=== PATIENT | female | born 1955 | race Caucasian/White ===

== ENCOUNTER 2017-02-18 17:07 | Emergency (ER) | payer MEDICAID ==
[2017-02-18 17:40] VITALS: TEMP 98.2
[2017-02-18] MEDS ORDERED: IBUPROFEN 200 MG TAB PO ONE (17:47)
--- NOTE | 2017-02-18 17:55 | EDPHY ---
H & P Stated Complaint: fell through fence, L rib, shoulder, arm, face pain HPI/ROS: CHIEF COMPLAINT: Fell into a fence HISTORY OF PRESENT ILLNESS: This patient is a 61 year old female complaining of head, arm, rib, and collarbone pain secondary to a fall this afternoon. She was running and tripped over a cinderblock, falling into a wooden fence with enough force to break it. She struck the fence primarily with her face and arm. She felt woozy following the incident, but denies loss of consciousness. She has a severe headache, pain to her left collarbone and arm, and pain in her right ribs. She has a history of previous head injury 03/14/2000, which she states resulted in a long recovery process for aphasia and other symptoms. No nausea, vomiting. She denies other injuries and specifically states that she does not have neck or back pain, numbness, or weakness. REVIEW OF SYSTEMS: A ten point review of systems was performed and is negative with the exception of the items mentioned in the HPI. - Personal History Current Tetanus/Diphtheria Vaccine: Yes Current Tetanus Diphtheria and Acellular Pertussis (TDAP): Yes - Medical/Surgical History PMH: 1. Previous head injury 03/14/2000. 2. Right ribs previous fractures. 3. Cesarian section 4. Appendectomy 5. 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 . - Physical Exam Exam: General Appearance: Alert. Vital signs reviewed. Blood pressure 133/80 Head: Normocephalic atraumatic. Eyes: Pupils equal and round, no conjunctival injection, no discharge. Anicteric. ENT, Mouth: No hemotympanum. Very tender over left zygoma, angle of mandible. Mild Trismus. Mucous membranes are moist, no oropharyngeal erythema or edema. No dental injury. No malocclusion. Neck: No tenderness with palpation over the cervical spine in the midline. There is some tenderness over the trapezius muscles bilaterally. No lymphadenopathy, supple. Respiratory: Lungs are clear to auscultation; no wheezes, rales, or rhonchi. Thorax is without crepitus. No rib tenderness. Cardiovascular: Regular rate and rhythm; no murmur, rub, or gallop. Gastrointestinal: Abdomen is soft and nontender, no masses or organomegaly, bowel sounds normal. Skin: Warm and dry, no rashes on exposed skin, normal color. Back: Nontender to palpation over the thoracolumbar spine. No CVAT. Extremities: Abrasion posterior medial aspect left wrist. Full active range of motion left shoulder and elbow. Wrist not tested due to pain No lower extremity edema, no calf tenderness or swelling. Neurological: Alert and oriented. Moving all four extremities easily and equally. Cranial nerves II through XII are examined and are intact (visual acuity not tested). Strength is 5 over 5 bilaterally with testing of all major motor groups. Sensation is intact to light touch over all 4 extremities. Deep tendon reflexes are 2+ in the biceps and knees bilaterally. Gait is normal. Psychiatric: Normal affect. Constitutional: Initial Vital Signs Temperature (C) 36.8 C 02/18/17 17:13 Heart Rate 73 02/18/17 17:13 Respiratory Rate 17 02/18/17 17:13 Blood Pressure 133/80 H 02/18/17 17:13 O2 Sat (%) 96 02/18/17 17:13 O2 Delivery Mode Room Air Allergies/Adverse Reactions: Penicillins Allergy (Verified 02/18/17 17:13) SHELL FISH Allergy (Uncoded 08/08/10 10:06) Home Medications: Medication Instructions Recorded [facility] 08/08/10 Hydrocodone/APAP 5/325 [Mclean 1 tab PO Q4 #12 tab 07/17/14 5/325 (RX)] Hydrocodone/APAP 5/325 [Mclean 1 - 2 tab PO Q4 PRN #10 tab 02/18/17 5/325 (RX)] Medical Decision Making - Diagnostics Imaging: Discussed imaging studies w/ call center manager Radiologist, I viewed and interpreted images myself ED Course/Re-evaluation: Due to patient's severe headache and history of prior closed head injury, plan for CT head, neck, facial bones (she reports difficulty opening her mouth and pain over left maxilla and she has swelling and bruising over left zygoma), X- ray chest, wrist. 19:[address] Ackerman, radiologist. CT head, neck, maxillofacial negative for acute processes. X-ray chest and wrist show no acute osseous abnormalities. I reviewed the images myself as well. Plan to discharge home in good condition with prescription for small quantity of Mclean for pain management. Follow up and return precautions discussed. The patient is comfortable with this plan. I have not found evidence of life- threatening injury. Differential Diagnosis: I considered a differential diagnosis of traumatic injury that includes but is not limited to intracranial hemorrhage, skull fracture, concussion, vertebral injury, spinal cord injury, intrathoracic injury, intra-abdominal injury, long bone fractures, contusions, abrasions, and lacerations. - Data Points Medications Given: Discontinued Medications Ibuprofen (Motrin) 600 mg PO EDNOW ONE Stop: 02/18/17 17:48 Last Admin: 02/18/17 17:51 Dose: 600 mg Oxycodone/Acetaminophen (Percocet 5/325) 2 tab PO EDNOW ONE Stop: 02/18/17 18:57 Last Admin: 02/18/17 18:56 Dose: 2 tab Departure - Departure Disposition: Home, Routine, Self-Care Clinical Impression: Multiple contusions, Cervical strain Condition: Good Instructions: Cervical Strain (ED), Contusion in Adults (ED), RICE Therapy (ED) Additional Instructions: 1. Follow up with your primary care provider for symptoms unresolved. 2. You may take Mclean as prescribed as needed for severe pain. You may also take ibuprofen or Tylenol as directed below. Do not take Tylenol while you are taking Mclean, as this medication already contains acetaminophen. 3. Return to the Emergency Department for severe head pain, weakness or numbness , fainting, vomiting, or other worsening of condition. Adult Pain & Fever Control: We recommend Acetaminophen (Tylenol) and Ibuprofen (Motrin,Advil) for pain and fever control. When fever is high or pain severe, both drugs can be used at the same time, but at different intervals. Please note the time differences. Your dose is: Acetaminophen 650mg every 4 to 6 hours Ibuprofen 400mg every 6-8 hours with food Note: do not take Acetaminophen with Hydrocodone (Vicodin, Lortab) or Oxycodone (Percocet). These medications also contain Acetaminophen. No more than 3000mg of Acetaminophen should be taken in 24 hours (for an adult). Referrals: Ashlie Osborne PA [Primary Care Provider] - As per Instructions Prescriptions: Hydrocodone/APAP 5/325 [Mclean 5/325 (RX)] 1 - 2 tab PO Q4 PRN #10 tab PRN Reason: pain Report Scribed for: Lissette Quintanilla Report Scribed by: Jackie Jane Date of Report: 02/18/17 Time of Report: 18:29 Physician Review and Approval Statement: 02/18/17 17:55 Portions of this note were transcribed by the medical care administrator. I, Dr. Lissette Quintanilla, personally performed the history, physical exam, and medical decision- making; and confirmed the accuracy of the information in the transcribed note.
[2017-02-18] MEDS ORDERED: OXYCODONE/APAP 5/325 TAB ONE (18:54)
[2017-02-18] MEDS ORDERED: OXYCODONE/APAP 5/325 TAB PO ONE (18:56)
[2017-02-18 20:39] VITALS: BP 141/93; PULSE 70; RESP 18; O2SAT 95
== END 2017-02-18 20:38 | disposition home or self-care (01) ==
DX: S40.012A Contusion of left shoulder, initial encounter (principal); S60.212A Contusion of left wrist, initial encounter; S50.02XA Contusion of left elbow, initial encounter; S16.1XXA Strain of muscle, fascia and tendon at neck level, initial encounter; W01.198A Fall on same level from slipping, tripping and stumbling with subsequent striking against other object, initial encounter; Y99.8 Other external cause status; Y93.02 Activity, running
CPT/HCPCS: A4565

== ENCOUNTER → 2017-03-03 | Outpatient (CLI) | payer MEDICAID | LOC: FIMAGING 12:42 | PROVIDERS: ATTEND Physician Assistant | DX: Z12.31 Encounter for screening mammogram for malignant neoplasm of breast (principal) | CPT/HCPCS: G0202 ==

== ENCOUNTER → 2017-04-02 | Outpatient (CLI) | payer MEDICAID | LOC: FIMAGING 11:10 | PROVIDERS: ATTEND Physician Assistant ==

== ENCOUNTER → 2017-11-19 | Outpatient (CLI) | payer MEDICAID | LOC: FIMAGING 09:12 | PROVIDERS: ATTEND Physician Assistant | DX: N64.59 Other signs and symptoms in breast (principal); R92.8 Other abnormal and inconclusive findings on diagnostic imaging of breast ==